=== PATIENT | female | born 1970 | race Caucasian/White ===

== ENCOUNTER → 2020-06-23 11:38 | Outpatient (BNVA) | payer MEDICAID, SELFPAY | PROVIDERS: PCP Nurse Practitioner; Visit Provider Nurse Practitioner Family | DX: M25.559 Pain in unspecified hip (principal) | CPT/HCPCS: 73502 ==

== ENCOUNTER → 2020-11-09 10:18 | Outpatient (BNVA) | payer MEDICAID, SELFPAY | PROVIDERS: PCP Nurse Practitioner; Visit Provider Nurse Practitioner Family | DX: Z20.822 Contact with and (suspected) exposure to COVID-19 (principal); J06.9 Acute upper respiratory infection, unspecified | CPT/HCPCS: 87635 ==